=== PATIENT | female | born 1995 | race African-American/Black ===

== ENCOUNTER 2017-09-29 12:43 | Inpatient (IN) ==
[2017-09-29] MEDS ORDERED: LACTATED RINGERS 1,000 ML IV PRN (13:06)
[2017-09-29] MEDS ORDERED: ONDANSETRON 4 MG/2 ML VIAL IV PRN (13:06)
[2017-09-29] MEDS ORDERED: OXYTOCIN/LR 20 UNIT/1,000 ML BAG IV SCH (13:30)
[2017-09-29] MEDS ORDERED: CITRIC ACID/SODIUM CITRATE 30 ML UDCUP PO ONE (14:20)
[2017-09-29] MEDS ORDERED: FAMOTIDINE 20 MG/2 ML VIAL IV ONE (14:20)
[2017-09-29] MEDS ORDERED: ePHEDrine 50 MG/ML AMP IV PRN (14:20)
[2017-09-29] MEDS ORDERED: PROMETHAZINE 25 MG/1 ML VIAL IM ONE (14:20)
[2017-09-29] MEDS ORDERED: ONDANSETRON 4 MG/2 ML VIAL IV ONE (14:20)
[2017-09-29] MEDS ORDERED: diphenhydrAMINE 50 MG/1 ML VIAL IV PRN ×2 (14:20)
[2017-09-29] MEDS ORDERED: hydrOXYzine HCL 25 MG/1 ML VIAL IM PRN (14:20)
[2017-09-29 14:28] LABS: Basophils % 0.2 % (0.0-0.8); Eosinophils % 0.2 % (0.00-10.9); Hemoglobin 11.8 GM/DL (12.0-16.0); Immature Granulocytes % 0.4 %; Immature Granulocytes Absolute 0.05 #; Lymphocytes % 16.1 % (21.3-54.2); Mean Corpuscular HGB Conc 36.9 GM/DL (32-36); Mean Corpuscular Hemoglobin 33 PG (27-34); Mean Corpuscular Volume 88.2 FL (87-102); Mean Platelet Volume 13.9 FL (9.6-12.0); Monocytes # 0.7 10*3/uL (0.11-0.8); Monocytes % 5.5 % (1.7-12.7); Neutrophils # 9.5 10*3/uL (1.4-7.4); Neutrophils % 77.6 % (38.7-73.9); Platelet Count 129 T/CUMM (130-400); Red Blood Count 3.63 MC/CUMM (3.8-5.5); Red Cell Distribution Width 13.4 % (9.3-17.3); White Blood Count 12.3 T/CUMM (4-12)
[2017-09-29] MEDS: LACTATED RINGERS 1,000 ML IV SCH ×2 (14:29→16:35)
[2017-09-29] MEDS ORDERED: fentaNYL 2 MCG/ROPIV 0.2% EPID 150 ML EPIDURAL SCH (14:30)
[2017-09-29] MEDS ORDERED: LACTATED RINGERS 1,000 ML IV SCH ×3 (14:30→23:00)
[2017-09-29] MEDS: AMPICILLIN INJ 2,000 MG in SODIUM CHLORIDE 0.9% 100 ML IV SCH ×2 (15:11→20:35)
[2017-09-29 15:14] LABS: Albumin 2.6 G/DL (3.4-5.0); Bilirubin,Total 0.5 MG/DL (0.2-1.0); Calcium 7.6 MG/DL (8.5-10.1); Osmolality,Calculated 275.5 MOS/KG (273-304); Potassium 3.5 MMOL/L (3.5-5.1); Total Protein 6.3 G/DL (6.4-8.3)
[2017-09-29 19:43] LABS: Apearance,Urine CLEAR (Clear); Bilirubin,Urine Negative (Negative); Blood, Urine Negative (Negative); Glucose,Urine (UA) Negative (Negative); Ketones,Urine 20 mg/dL (Negative); Mucus,Urine Occasional /LPF (Occasional); Nitrite,Urine Negative (Negative); Protein,Urine Negative; RBC,Urine <1 /HPF (0-4); Urine Color Yellow (Yellow); Urine Specific Gravity 1.008 (1.001-1.035); Urine Urobilinogen < 2.0 EU/DL (0.2-1.0); WBC,Urine 1 /HPF (0-6)
[2017-09-29] MEDS ORDERED: miSOPROStol 200 MCG TABLET ONE (20:30)
[2017-09-29] MEDS ORDERED: ACETAMINOPHEN 325 MG TABLET PO PRN (22:52)
[2017-09-29] MEDS ORDERED: BISACODYL 10 MG SUPP RECTAL PRN (22:52)
[2017-09-29] MEDS ORDERED: MAGNESIUM HYDROXIDE SUSP 30 ML UDCUP PO PRN (22:52)
[2017-09-29] MEDS ORDERED: OXYTOCIN/LR 20 UNIT/1,000 ML BAG IV ONE (23:13)
[2017-09-30 05:06] LABS: Basophils % 0.2 % (0.0-0.8); Hemoglobin 11.3 GM/DL (12.0-16.0); Immature Granulocytes % 0.4 %; Immature Granulocytes Absolute 0.07 #; Lymphocytes # 1.6 10*3/uL (1.4-4.0); Mean Corpuscular HGB Conc 35.3 GM/DL (32-36); Mean Corpuscular Hemoglobin 31 PG (27-34); Mean Corpuscular Volume 88.9 FL (87-102); Mean Platelet Volume 14.3 FL (9.6-12.0); Monocytes # 1.2 10*3/uL (0.11-0.8); Monocytes % 7.1 % (1.7-12.7); Neutrophils # 13.5 10*3/uL (1.4-7.4); Neutrophils % 82.3 % (38.7-73.9); Platelet Count 98 T/CUMM (130-400); Red Cell Distribution Width 13.4 % (9.3-17.3); White Blood Count 16.4 T/CUMM (4-12)
[2017-09-30 05:30] LABS: Band Neutrophils 2 % (0-10); Lymphocytes 17 % (20-55); Segmented Neutrophils 80 % (50-85); Total Cells Counted 100
[2017-09-30 05:31] LABS: Platelet Estimate Decreased
[2017-09-30] MEDS: DOCUSATE SODIUM 100 MG CAPSULE PO SCH ×2 (08:53→20:48)
[2017-10-01 07:35] VITALS: BP 128/94
[2017-10-01] MEDS: DOCUSATE SODIUM 100 MG CAPSULE PO SCH (09:17)
[2017-10-01] MEDS: IBUPROFEN 800 MG TABLET PO PRN ×2 (09:17)
[2017-10-01] MEDS ORDERED: DIPH/TET/ACEL PERT BOOSTER VACCINE 0.5 ML VIAL IM ONE (11:12)
== END 2017-10-01 14:15 | disposition home or self-care (01) | DRG 560 ==
LOC: N.LDOUT 12:43 → N.LD 12:46 → N.OB 09-30 10:45
PROVIDERS: ADMIT Obstetrics & Gynecology; ATTEND Obstetrics & Gynecology